=== PATIENT | male | born 1950 | race Caucasian/White ===

== ENCOUNTER → 2018-03-01 | Outpatient (CLI) | payer OTHER, MEDICARE | END | disposition home or self-care (01) | LOC: CFH 10:01 | PROVIDERS: ATTEND Urology | DX: Z02.9 Encounter for administrative examinations, unspecified (principal) ==

== ENCOUNTER → 2018-07-26 | Outpatient (CLI) | payer OTHER, MEDICARE | END | disposition home or self-care (01) | LOC: CFH 11:19 | PROVIDERS: ATTEND Physician Assistant | DX: Z13.820 Encounter for screening for osteoporosis (principal); M85.89 Other specified disorders of bone density and structure, multiple sites; C79.51 Secondary malignant neoplasm of bone | CPT/HCPCS: 77080 ==

== ENCOUNTER 2018-08-05 19:30 | Inpatient (IN) | payer OTHER, MEDICARE ==
[~2018-08-05] VITALS: Ht 175.3 cm; Wt 92.1 kg
[2018-08-05 20:07] LABS: BASOPHILS # (AUTO) 0.02 x10^3/uL (0-0.1); BASOPHILS % (AUTO) 0 % (0-1); EOSINOPHILS # (AUTO) 0.12 x10^3/uL (0-0.4); EOSINOPHILS % (AUTO) 2 % (1-7); LYMPHOCYTES # (AUTO) 1.11 x10^3/uL (1-3.4); LYMPHOCYTES % (AUTO) 23 % (22-44); MD NO; MEAN CORPUSCULAR HEMOGLOBIN 32.5 pg (27.5-34.5); MEAN CORPUSCULAR HGB CONC 34.4 g/dL (33.2-36.2); MEAN CORPUSCULAR VOLUME 94.4 fL (81-97); MEAN PLATELET VOLUME 9.5 fL (7.4-10.4); MONOCYTES # (AUTO) 0.38 x10^3/uL (0.2-0.8); MONOCYTES % (AUTO) 8 % (2-9); NEUTROPHILS # (AUTO) 3.14 x10^3/uL (1.8-6.8); NEUTROPHILS % (AUTO) 66 % (42-75); PLATELET COUNT 206 x10^3/uL (130-400); RED BLOOD COUNT 4.88 x10^6/uL (4.38-5.82); RED CELL DISTRIBUTION WIDTH 12.7 % (9.4-14.8)
[2018-08-05 20:14] LABS: ALBUMIN 3.8 g/dL (3.4-5.0); ANION GAP 8 mmol/L (5-15); CALCIUM 9.8 mg/dL (8.5-10.1); CHLORIDE 107 mmol/L (98-107)
[2018-08-05 20:18] LABS: ALANINE AMINOTRANSFERASE 706 U/L (12-78); ALKALINE PHOSPHATASE 118 U/L (45-117); BILIRUBIN,TOTAL 6.3 mg/dL (0.2-1.0); CREATININE 0.97 mg/dL (0.7-1.3); TOTAL PROTEIN 7.1 g/dL (6.4-8.2)
[2018-08-05 20:55] LABS: CULTURE INDICATED? YES; MICROSCOPIC INDICATED
[2018-08-05] MEDS ORDERED: ENZA40CA PO (20:55)
--- NOTE | 2018-08-05 20:59 | NUR ---
RECENT DX OF ULCER FROM ED. "I MESSED MYSELF UP AGAIN BY EATING BAD." STATES HEMATURIA TODAY. DENIES ABD/FLANK PAIN. DENIES FEVERS. per triage note vss stable
--- NOTE | 2018-08-05 22:45 | NUR ---
PT BACK FROM RADIOLOGY, NO DISTRESS NOTED, DENIES PAIN AT THIS TIME, RESTING QUIETLY WATCHING TV, AT BS, CALL LIGHT IN REACH
--- NOTE | 2018-08-05 23:16 | NUR ---
PT UP T BATHROOM WITH STEADY GAIT
--- NOTE | 2018-08-06 00:28 | NUR ---
REPORT GIVEN TO LORE PATTON
[2018-08-06] MEDS ORDERED: ONDANSETRON 2MG/ML, 2ML IVPush PRN ×2 (00:30→01:00)
[2018-08-06] MEDS ORDERED: MORPHINE SULFATE 4 MG/ML, 1ML IVPush PRN (00:30)
[2018-08-06] MEDS ORDERED: SODIUM CHLORIDE 0.9% 1,000ML IVBOLUS ONE (00:30)
[2018-08-06] MEDS ORDERED: LIDODERM 5% PATCH TD PRN (01:00)
[2018-08-06] MEDS ORDERED: BISACODYL 10 MG SUPP PR PRN (01:00)
[2018-08-06] MEDS ORDERED: morphine SULFATE 10 MG/ML, 1ML IVPush PRN (01:00)
[2018-08-06] MEDS ORDERED: LABETALOL 5MG/ML, 20ML IVPush PRN (01:00)
[2018-08-06 02:22] VITALS: BP 142/89
[2018-08-06] MEDS: SODIUM CHLORIDE 0.9% 1,000 ML IV SCH ×3 (02:26→15:42)
[2018-08-06] MEDS ORDERED: OMNIPAQUE 350 MG/ML, 100ML BOTTLE ONE (05:11)
[2018-08-06 08:08] VITALS: BP 144/81
[2018-08-06] MEDS: FAMOTIDINE 20 MG/2 ML IVPush SCH ×2 (08:32→20:27)
[2018-08-06 12:49] VITALS: BP 133/77
[2018-08-06 18:46] VITALS: BP 158/83
[2018-08-07 00:10] VITALS: BP 157/85
[2018-08-07] MEDS: SODIUM CHLORIDE 0.9% 1,000 ML IV SCH ×3 (00:29→22:25)
[2018-08-07 06:01] LABS: HCT (SEDRATE) 40.2 % (39.2-51.8); MEAN CORPUSCULAR HEMOGLOBIN 31.8 pg (27.5-34.5); MEAN CORPUSCULAR HGB CONC 33.9 g/dL (33.2-36.2); MEAN CORPUSCULAR VOLUME 93.8 fL (81-97); MEAN PLATELET VOLUME 9.8 fL (7.4-10.4); PLATELET COUNT 181 x10^3/uL (130-400); RED BLOOD COUNT 4.29 x10^6/uL (4.38-5.82); RED CELL DISTRIBUTION WIDTH 12.7 % (9.4-14.8)
[2018-08-07 06:05] LABS: CHLORIDE 112 mmol/L (98-107)
[2018-08-07 06:06] LABS: ANION GAP 7 mmol/L (5-15); C-REACTIVE PROTEIN, QUANT 0.92 mg/dL (0.02-0.49); CALCIUM 8.5 mg/dL (8.5-10.1); CREATININE 0.69 mg/dL (0.7-1.3)
[2018-08-07 06:25] LABS: BASOPHILS # (AUTO) 0.03 x10^3/uL (0-0.1); BASOPHILS % (AUTO) 1 % (0-1); EOSINOPHILS # (AUTO) 0.33 x10^3/uL (0-0.4); EOSINOPHILS % (AUTO) 9 % (1-7); LYMPHOCYTES # (AUTO) 1.02 x10^3/uL (1-3.4); LYMPHOCYTES % (AUTO) 28 % (22-44); MD SCAN; MONOCYTES # (AUTO) 0.43 x10^3/uL (0.2-0.8); MONOCYTES % (AUTO) 12 % (2-9); NEUTROPHILS # (AUTO) 1.83 x10^3/uL (1.8-6.8); NEUTROPHILS % (AUTO) 50 % (42-75)
[2018-08-07 07:34] VITALS: BP 152/87
[2018-08-07] MEDS: FAMOTIDINE 20 MG/2 ML IVPush SCH ×2 (10:41→20:32)
[2018-08-07 12:21] VITALS: BP 175/85
[2018-08-07] MEDS ORDERED: FENTANYL PF 100 MCG/2ML ONE (12:40)
[2018-08-07] MEDS ORDERED: ONDANSETRON 2MG/ML, 2ML ONE (13:25)
[2018-08-07] MEDS ORDERED: MEPERIDINE/PF 25MG/0.5ML IVPush PRN (14:00)
[2018-08-07] MEDS ORDERED: MORPHINE SULFATE 4 MG/ML, 1ML IVPush PRN (14:00)
[2018-08-07] MEDS ORDERED: FENTANYL PF 100 MCG/2ML IV PRN (14:00)
[2018-08-07] MEDS ORDERED: PROMETHAZINE 12.5 MG SUPP PR PRN (14:00)
[2018-08-07] MEDS ORDERED: hydrALAzine 20 MG/ML, 1ML IV PRN (14:00)
[2018-08-07] MEDS ORDERED: HALOPERIDOL 5 MG/ML IV PRN (14:00)
[2018-08-07] MEDS ORDERED: MIDAZOLAM 1 MG/ML, 2ML IV PRN (14:00)
[2018-08-07] MEDS ORDERED: ALBUTEROL SULFATE 2.5 MG/3 ML NPPB PRN (14:00)
[2018-08-07] MEDS ORDERED: LABETALOL 5MG/ML, 20ML IV PRN (14:00)
[2018-08-07] MEDS ORDERED: EPHEDRINE 50 MG/ML, 1ML IVPush PRN (14:00)
[2018-08-07] MEDS ORDERED: HYDROmorphone 2 MG/ML, 1ML IVPush PRN (14:00)
[2018-08-07] MEDS ORDERED: PROMETHAZINE 25 MG/ML, 1ML IV PRN (14:00)
[2018-08-07] MEDS ORDERED: OXYcodone 5 MG/5 ML ORAL.SOL UDC PO PRN (14:00)
[2018-08-07] MEDS ORDERED: ONDANSETRON 2MG/ML, 2ML IV PRN (14:00)
[2018-08-07] MEDS ORDERED: ONDANSETRON ODT 8 MG PO PRN (14:00)
[2018-08-07] MEDS ORDERED: DIAZEPAM 5 MG/ML, 2ML IVPush PRN (14:00)
[2018-08-07] MEDS ORDERED: ROCURONIUM 10MG/ML,5ML ONE (15:49)
[2018-08-07] MEDS ORDERED: PROPOFOL 10 MG/ML, 20ML ONE (15:49)
[2018-08-07] MEDS ORDERED: DEXAMETHASONE 4 MG/ML, 1ML ONE (15:49)
[2018-08-07] MEDS ORDERED: SUCCINYLCHOLINE 20 MG/ML, 10ML ONE (15:49)
[2018-08-07 20:00] VITALS: BP 126/75
[2018-08-08 01:13] VITALS: BP 145/75
[2018-08-08] MEDS: SODIUM CHLORIDE 0.9% 1,000 ML IV SCH ×3 (05:48→19:50)
[2018-08-08 06:09] LABS: ANION GAP 6 mmol/L (5-15); CALCIUM 8.5 mg/dL (8.5-10.1); CHLORIDE 112 mmol/L (98-107)
[2018-08-08 06:10] LABS: CREATININE 0.69 mg/dL (0.7-1.3)
[2018-08-08 06:12] LABS: BASOPHILS # (AUTO) 0.03 x10^3/uL (0-0.1); BASOPHILS % (AUTO) 1 % (0-1); EOSINOPHILS % (AUTO) 4 % (1-7); LYMPHOCYTES % (AUTO) 21 % (22-44); MD NO; MEAN CORPUSCULAR HEMOGLOBIN 31.7 pg (27.5-34.5); MEAN CORPUSCULAR HGB CONC 33.9 g/dL (33.2-36.2); MEAN CORPUSCULAR VOLUME 93.7 fL (81-97); MEAN PLATELET VOLUME 9.8 fL (7.4-10.4); MONOCYTES # (AUTO) 0.54 x10^3/uL (0.2-0.8); MONOCYTES % (AUTO) 10 % (2-9); NEUTROPHILS # (AUTO) 3.69 x10^3/uL (1.8-6.8); NEUTROPHILS % (AUTO) 65 % (42-75); PLATELET COUNT 193 x10^3/uL (130-400); RED BLOOD COUNT 4.23 x10^6/uL (4.38-5.82); RED CELL DISTRIBUTION WIDTH 12.7 % (9.4-14.8)
[2018-08-08 07:13] VITALS: BP 153/91
[2018-08-08] MEDS: FAMOTIDINE 20 MG/2 ML IVPush SCH ×2 (09:34→21:51)
[2018-08-08 14:30] VITALS: BP 163/75
[2018-08-08] MEDS ORDERED: BUPIVACAINE/PF-EPI 0.5% 1:200K ONE (15:12)
[2018-08-08] MEDS ORDERED: MIDAZOLAM 1 MG/ML, 2ML ONE (15:50)
[2018-08-08] MEDS ORDERED: PROPOFOL 50 ML ONE (15:50)
[2018-08-08] MEDS ORDERED: FENTANYL PF 250 MCG/5ML ONE (15:50)
[2018-08-08] MEDS ORDERED: SUCCINYLCHOLINE 20 MG/ML, 10ML ONE (16:10)
[2018-08-08] MEDS ORDERED: ROCURONIUM 10 MG/ML,10ML ONE (16:10)
[2018-08-08] MEDS ORDERED: ONDANSETRON 2MG/ML, 2ML ONE (16:10)
[2018-08-08] MEDS ORDERED: DEXAMETHASONE 4 MG/ML, 1ML ONE (16:10)
[2018-08-08] MEDS ORDERED: PROMETHAZINE 25 MG/ML, 1ML IM PRN (17:00)
[2018-08-08] MEDS ORDERED: MIDAZOLAM 1 MG/ML, 2ML IV PRN (17:00)
[2018-08-08] MEDS ORDERED: OXYcodone 5 MG/5 ML ORAL.SOL UDC PO PRN (17:00)
[2018-08-08] MEDS ORDERED: EPHEDRINE 50 MG/ML, 1ML IVPush PRN (17:00)
[2018-08-08] MEDS ORDERED: EPHEDRINE 50 MG/ML, 1ML IM PRN (17:00)
[2018-08-08] MEDS ORDERED: DIAZEPAM 5 MG/ML, 2ML IVPush PRN (17:00)
[2018-08-08] MEDS ORDERED: PROMETHAZINE 25 MG SUPP PR PRN (17:00)
[2018-08-08] MEDS ORDERED: PROMETHAZINE 25 MG/ML, 1ML IV PRN (17:00)
[2018-08-08] MEDS ORDERED: ONDANSETRON ODT 8 MG PO PRN (17:00)
[2018-08-08] MEDS ORDERED: FENTANYL PF 100 MCG/2ML IV PRN (17:00)
[2018-08-08] MEDS ORDERED: hydrALAzine 20 MG/ML, 1ML IV PRN (17:00)
[2018-08-08] MEDS ORDERED: ONDANSETRON 2MG/ML, 2ML IV PRN ×2 (17:00→18:30)
[2018-08-08] MEDS ORDERED: DIPHENHYDRAMINE 50 MG/ML, 1ML IVPush PRN (17:00)
[2018-08-08] MEDS ORDERED: PROMETHAZINE 12.5 MG SUPP PR PRN (17:00)
[2018-08-08] MEDS ORDERED: MORPHINE SULFATE 4 MG/ML, 1ML IVPush PRN (17:00)
[2018-08-08] MEDS ORDERED: METOPROLOL 1 MG/ML, 5ML IV PRN (17:00)
[2018-08-08] MEDS ORDERED: OXYcodone 5 MG/5 ML ORAL.SOL UDC ONE (17:40)
[2018-08-08] MEDS ORDERED: morphine SULFATE 10 MG/ML, 1ML IV PRN (18:30)
[2018-08-08] MEDS ORDERED: HYDROcodone/APAP 5/325 TABLET PO PRN (18:30)
[2018-08-08] MEDS ORDERED: HYDROmorphone 2 MG/ML, 1ML IVPush PRN (18:30)
[2018-08-08 19:27] VITALS: BP 148/81
[2018-08-08] MEDS: CEFOTETAN PMX 1GM/50ML 50 ML IVPB SCH (19:50)
[2018-08-08] MEDS: POTASSIUM CHLORIDE 20 MEQ in D5%-LACTATED RINGERS 1,000 ML IV SCH (19:50)
[2018-08-09 00:53] VITALS: BP 137/86
[2018-08-09] MEDS: OXYcodone/APAP 5/325MG TABLET PO PRN ×4 (02:37→14:14)
[2018-08-09] MEDS: POTASSIUM CHLORIDE 20 MEQ in D5%-LACTATED RINGERS 1,000 ML IV SCH ×2 (03:30→10:25)
[2018-08-09] MEDS: SODIUM CHLORIDE 0.9% 1,000 ML IV SCH (04:00)
[2018-08-09 04:52] VITALS: BP 120/72
[2018-08-09 05:42] LABS: BASOPHILS # (AUTO) 0.02 x10^3/uL (0-0.1); BASOPHILS % (AUTO) 0 % (0-1); EOSINOPHILS # (AUTO) 0.08 x10^3/uL (0-0.4); EOSINOPHILS % (AUTO) 1 % (1-7); LYMPHOCYTES # (AUTO) 0.93 x10^3/uL (1-3.4); LYMPHOCYTES % (AUTO) 15 % (22-44); MD NO; MEAN CORPUSCULAR HEMOGLOBIN 32.2 pg (27.5-34.5); MEAN CORPUSCULAR HGB CONC 34.1 g/dL (33.2-36.2); MEAN CORPUSCULAR VOLUME 94.4 fL (81-97); MEAN PLATELET VOLUME 9.8 fL (7.4-10.4); MONOCYTES % (AUTO) 10 % (2-9); NEUTROPHILS # (AUTO) 4.64 x10^3/uL (1.8-6.8); NEUTROPHILS % (AUTO) 74 % (42-75); PLATELET COUNT 174 x10^3/uL (130-400); RED BLOOD COUNT 4.13 x10^6/uL (4.38-5.82); RED CELL DISTRIBUTION WIDTH 12.6 % (9.4-14.8)
[2018-08-09 05:51] LABS: CHLORIDE 109 mmol/L (98-107)
[2018-08-09 06:00] LABS: ANION GAP 7 mmol/L (5-15); CALCIUM 8.6 mg/dL (8.5-10.1); CREATININE 0.68 mg/dL (0.7-1.3)
[2018-08-09] MEDS ORDERED: ENOXAPARIN 40 MG/0.4 ML SQ SCH (06:00)
[2018-08-09] MEDS: CEFOTETAN PMX 1GM/50ML 50 ML IVPB SCH (06:14)
[2018-08-09 06:51] VITALS: BP 128/76
[2018-08-09] MEDS ORDERED: FAMOTIDINE 20 MG TABLET PO SCH (09:00)
[2018-08-09 14:08] VITALS: BP 137/81
[2018-08-09] MEDS ORDERED: HYDR-3237 PO (15:40)
[2018-08-09 16:09] VITALS: BP 128/71
== END 2018-08-09 17:00 | disposition home or self-care (01) | DRG 417 ==
LOC: ED 23:10 → EDIP 08-06 00:13 → 4NOR 08-06 01:09 → DCLOUNGE 08-09 16:31
PROVIDERS: ADMIT Internal Medicine; ATTEND Internal Medicine
PROC: 0FD98ZX Extraction of Common Bile Duct, Via Natural or Artificial Opening Endoscopic, Diagnostic (ICD-10-PCS; 2018-08-07)
PROC: BF131ZZ Fluoroscopy of Gallbladder and Bile Ducts using Low Osmolar Contrast (ICD-10-PCS; 2018-08-07)
PROC: 0FT44ZZ Resection of Gallbladder, Percutaneous Endoscopic Approach (ICD-10-PCS; principal; 2018-08-08 16:30)
DX: K80.62 Calculus of gallbladder and bile duct with acute cholecystitis without obstruction (principal); K85.10 Biliary acute pancreatitis without necrosis or infection; C61 Malignant neoplasm of prostate; K27.9 Peptic ulcer, site unspecified, unspecified as acute or chronic, without hemorrhage or perforation; K57.30 Diverticulosis of large intestine without perforation or abscess without bleeding; K76.0 Fatty (change of) liver, not elsewhere classified; N20.0 Calculus of kidney; E80.6 Other disorders of bilirubin metabolism; E66.01 Morbid (severe) obesity due to excess calories; K83.5 Biliary cyst; K21.9 Gastro-esophageal reflux disease without esophagitis; I10 Essential (primary) hypertension; Z83.3 Family history of diabetes mellitus; Z68.30 Body mass index [BMI] 30.0-30.9, adult
CPT/HCPCS: 36415; 74328; 99291; J3490; J7121; 74177; 74181; 76700; 80048; 80053; 81001; 83690; 84478; 85025; 85651; 86140; 87086; 88304; 93005; C1729; G0378; J1100; J1650; J2250; J2405; J2704; J3010; J3480; Q9967; C1760; C1769; J0330; J7030

== ENCOUNTER 2019-05-19 06:48 | Emergency (ER) | payer OTHER, MEDICARE ==
[~2019-05-19] VITALS: Ht 175.3 cm; Wt 95.0 kg
[~2019-05-19 06:48] MED LIST: ENZA40CA PO; HYDR-3237 PO
--- NOTE | 2019-05-19 07:11 | NUR ---
69 Y/O MALE PRESENTS TO ED WITH C/O HEART FLUTTER. PER PT " A FEW DAYS AGO I FELT MY HEART FLUTTER SOME, IT DIDN'T HAPPEN A LOT. BUT IT'S BEEN ONGOING AND TODAY WHILE I WAS DRIVING MY BUS I FELT IT AGAIN. I DIDN'T HAVE ANY CHEST PAIN. 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 NADN. NO CO N/V/D, TRUAMA, SYNCOPE, CP
[2019-05-19 07:41] LABS: BASOPHILS # (AUTO) 0.03 x10^3/uL (0-0.1); BASOPHILS % (AUTO) 1 % (0-1); EOSINOPHILS # (AUTO) 0.21 x10^3/uL (0-0.4); EOSINOPHILS % (AUTO) 4 % (1-7); LYMPHOCYTES # (AUTO) 1.17 x10^3/uL (1-3.4); LYMPHOCYTES % (AUTO) 21 % (22-44); MD NO; MEAN CORPUSCULAR HEMOGLOBIN 32.2 pg (27.5-34.5); MEAN CORPUSCULAR HGB CONC 33.8 g/dL (33.2-36.2); MEAN CORPUSCULAR VOLUME 95.2 fL (81-97); MEAN PLATELET VOLUME 9.6 fL (7.4-10.4); MONOCYTES # (AUTO) 0.43 x10^3/uL (0.2-0.8); MONOCYTES % (AUTO) 8 % (2-9); NEUTROPHILS # (AUTO) 3.79 x10^3/uL (1.8-6.8); NEUTROPHILS % (AUTO) 67 % (42-75); PLATELET COUNT 201 x10^3/uL (130-400); RED BLOOD COUNT 4.62 x10^6/uL (4.38-5.82); RED CELL DISTRIBUTION WIDTH 13.1 % (9.4-14.8)
[2019-05-19 07:48] LABS: ALANINE AMINOTRANSFERASE 30 U/L (12-78); ALBUMIN 3.4 g/dL (3.4-5.0); ANION GAP 8 mmol/L (5-15); CALCIUM 8.6 mg/dL (8.5-10.1); CHLORIDE 111 mmol/L (98-107); CREATININE 0.63 mg/dL (0.7-1.3)
[2019-05-19 07:52] LABS: ALKALINE PHOSPHATASE 79 U/L (45-117); BILIRUBIN,TOTAL 0.5 mg/dL (0.2-1.0); TOTAL PROTEIN 6.7 g/dL (6.4-8.2); TROPONIN I < 0.015 ng/mL (0.000-0.045)
[2019-05-19 08:34] VITALS: BP 138/73
--- NOTE | 2019-05-19 08:34 | NUR ---
PT AMBULATORY WITH STEADY GAIT TO BATHROOM. NADN. NO C/O PAIN. VSS. NO OTHER NEEDS REQUESTED AT THIS TIME.
--- NOTE | 2019-05-19 09:20 | NUR ---
Patient/Caregiver given discharge instructions and they have confirmed that they understand the instructions. Patient ambulatory with steady gait. PT LEFT WITH ALL PERSONAL BELONGINGS.
== END 2019-05-19 09:22 | disposition home or self-care (01) ==
LOC: ED 09:00
DX: R00.2 Palpitations (principal); C61 Malignant neoplasm of prostate
CPT/HCPCS: 36415; 71045; 80053; 83690; 84484; 85025; 93005; 99284

== ENCOUNTER → 2019-12-10 | Outpatient (CLI) | payer OTHER, MEDICARE ==
[~2019-12-10] MED LIST changes: +OMNIPAQUE 350 MG/ML, 100ML BOTTLE ONE
== END | disposition home or self-care (01) ==
LOC: CFH 09:07
PROVIDERS: ATTEND Urology
DX: C61 Malignant neoplasm of prostate (principal); M51.36 Other intervertebral disc degeneration, lumbar region; K76.0 Fatty (change of) liver, not elsewhere classified; M85.80 Other specified disorders of bone density and structure, unspecified site; N28.1 Cyst of kidney, acquired
CPT/HCPCS: 74177; 82565; Q9967

== ENCOUNTER → 2020-01-27 | Outpatient (CLI) | payer MEDICARE, OTHER ==
[~2020-01-27] MED LIST changes: -OMNIPAQUE 350 MG/ML, 100ML BOTTLE ONE; +REGADENOSON 0.4 MG/5 ML SYRINGE ONE
== END | disposition home or self-care (01) ==
LOC: RAD 07:56
PROVIDERS: ATTEND Internal Medicine Cardiovascular Disease
DX: I35.1 Nonrheumatic aortic (valve) insufficiency (principal); R07.9 Chest pain, unspecified; R94.31 Abnormal electrocardiogram [ECG] [EKG]
CPT/HCPCS: 78452; 93017; 93306; A9502; J2785

== ENCOUNTER 2020-02-08 08:17 | Emergency (ER) | payer OTHER, MEDICARE ==
[~2020-02-08] VITALS: Ht 175.3 cm; Wt 94.3 kg
[~2020-02-08 08:17] MED LIST changes: -REGADENOSON 0.4 MG/5 ML SYRINGE ONE
[2020-02-08 08:22] VITALS: BP 165/98
[2020-02-08] MEDS ORDERED: KETOROLAC 30 MG/1 ML IM ONE (09:00)
[2020-02-08] MEDS ORDERED: METHOCARBAMOL 750 MG TABLET PO ONE (09:00)
[2020-02-08 09:09] LABS: BASOPHILS # (AUTO) 0.02 x10^3/uL (0-0.1); BASOPHILS % (AUTO) 1 % (0-1); EOSINOPHILS # (AUTO) 0.11 x10^3/uL (0-0.4); EOSINOPHILS % (AUTO) 3 % (1-7); LYMPHOCYTES # (AUTO) 1.21 x10^3/uL (1-3.4); LYMPHOCYTES % (AUTO) 27 % (22-44); MD NO; MEAN CORPUSCULAR HGB CONC 33.2 g/dL (33.2-36.2); MEAN PLATELET VOLUME 9.6 fL (7.4-10.4); MONOCYTES # (AUTO) 0.33 x10^3/uL (0.2-0.8); MONOCYTES % (AUTO) 7 % (2-9); NEUTROPHILS # (AUTO) 2.81 x10^3/uL (1.8-6.8); NEUTROPHILS % (AUTO) 63 % (42-75); PLATELET COUNT 194 x10^3/uL (130-400); RED BLOOD COUNT 4.58 x10^6/uL (4.38-5.82); RED CELL DISTRIBUTION WIDTH 12.4 % (9.4-14.8)
[2020-02-08] MEDS ORDERED: KETOROLAC 30 MG/1 ML ONE (09:17)
[2020-02-08] MEDS ORDERED: METHOCARBAMOL 750 MG TABLET ONE (09:17)
[2020-02-08 09:18] LABS: ALBUMIN 3.7 g/dL (3.4-5.0); ANION GAP 5 mmol/L (5-15); CALCIUM 8.9 mg/dL (8.5-10.1); CHLORIDE 113 mmol/L (98-107)
[2020-02-08 09:19] LABS: CREATININE 0.74 mg/dL (0.7-1.3)
[2020-02-08 09:34] LABS: MICROSCOPIC NOT IND
== END 2020-02-08 10:15 | disposition home or self-care (01) ==
LOC: ED 09:02
DX: S39.012A Strain of muscle, fascia and tendon of lower back, initial encounter (principal); E03.9 Hypothyroidism, unspecified; X58.XXXA Exposure to other specified factors, initial encounter; Y93.89 Activity, other specified; Y92.89 Other specified places as the place of occurrence of the external cause; Y99.8 Other external cause status
CPT/HCPCS: 36415; 72110; 80048; 81003; 82040; 85025; 96372; 99284; J1885

== ENCOUNTER 2020-03-19 10:06 | Observation (INO) | payer OTHER, MEDICARE ==
[~2020-03-19] VITALS: Ht 175.3 cm; Wt 96.2 kg
[2020-03-19 11:38] VITALS: BP 160/96
[2020-03-19] MEDS ORDERED: LEUP3.75 IM (11:49)
[2020-03-19] MEDS ORDERED: LEVO50TA5 PO (11:49)
[2020-03-19] MEDS ORDERED: CHOL10003 PO (11:49)
[2020-03-19] MEDS ORDERED: METO25TA2 PO (11:49)
[2020-03-19] MEDS ORDERED: CYAN-27 PO (11:49)
[2020-03-19 12:01] LABS: BASOPHILS % (AUTO) 1 % (0-1); EOSINOPHILS % (AUTO) 2 % (1-7); LYMPHOCYTES % (AUTO) 31 % (22-44); MEAN CORPUSCULAR HEMOGLOBIN 32.1 pg (27.5-34.5); MEAN CORPUSCULAR HGB CONC 34.2 g/dL (33.2-36.2); MEAN PLATELET VOLUME 9.8 fL (7.4-10.4); MONOCYTES % (AUTO) 9 % (2-9); NEUTROPHILS % (AUTO) 57 % (42-75); PLATELET COUNT 201 x10^3/uL (130-400); RED BLOOD COUNT 4.79 x10^6/uL (4.38-5.82); RED CELL DISTRIBUTION WIDTH 12.6 % (9.4-14.8)
[2020-03-19 12:02] LABS: MD NO
[2020-03-19 12:03] LABS: ANION GAP 5 mmol/L (5-15); CALCIUM 8.7 mg/dL (8.5-10.1); CHLORIDE 112 mmol/L (98-107)
[2020-03-19] MEDS ORDERED: HEPARIN 1,000 UNITS/ML, 10ML ONE ×2 (13:16→13:24)
[2020-03-19] MEDS ORDERED: MIDAZOLAM 1 MG/ML, 5ML ONE ×2 (13:16→13:23)
[2020-03-19] MEDS ORDERED: VERAPAMIL 2.5 MG/ML, 2ML ONE ×2 (13:16→13:24)
[2020-03-19] MEDS ORDERED: LIDOCAINE-MPF 1%, 5ML ONE (13:16)
[2020-03-19] MEDS ORDERED: TICAGRELOR 90 MG TABLET ONE ×2 (13:16→13:24)
[2020-03-19] MEDS ORDERED: FENTANYL PF 100 MCG/2ML ONE ×2 (13:16→13:23)
[2020-03-19] MEDS ORDERED: BIVALIRUDIN 250 MG ONE ×2 (13:16→13:24)
[2020-03-19] MEDS ORDERED: NITROGLYCERIN 30 MCG/ML, 20ML VIAL ONE ×2 (13:17→13:24)
[2020-03-19] MEDS ORDERED: LIDOCAINE 2%, 20ML ONE (13:24)
[2020-03-19] MEDS ORDERED: ACETAMINOPHEN 325 MG TABLET ONE (16:18)
[2020-03-19] MEDS: ACETAMINOPHEN 325 MG TABLET PO PRN ×2 (16:20→22:00)
[2020-03-19] MEDS ORDERED: FAMOTIDINE 20 MG TABLET PO PRN (16:30)
[2020-03-19] MEDS: SODIUM CHLORIDE 0.9% 1,000 ML IV SCH ×4 (18:12→22:08)
[2020-03-19 18:54] VITALS: BP 216/106
[2020-03-19 19:08] VITALS: BP 177/93
[2020-03-19] MEDS ORDERED: ATORVASTATIN 40 MG TABLET PO SCH (21:00)
[2020-03-19] MEDS: TICAGRELOR 90 MG TABLET PO SCH (22:00)
[2020-03-20 01:08] VITALS: BP 125/76
[2020-03-20 04:41] LABS: ANION GAP 5 mmol/L (5-15); CALCIUM 8.6 mg/dL (8.5-10.1); CHLORIDE 110 mmol/L (98-107); CREATININE 0.63 mg/dL (0.7-1.3)
[2020-03-20 08:07] VITALS: BP 124/75
[2020-03-20] MEDS ORDERED: ATOR40TA78 PO (08:50)
[2020-03-20] MEDS ORDERED: ACET325T26 PO (08:50)
[2020-03-20] MEDS ORDERED: ASPI81TA45 PO (08:50)
[2020-03-20] MEDS ORDERED: TICA90TA PO (08:50)
[2020-03-20] MEDS ORDERED: ENZALUTAMIDE 40 MG PO SCH (09:00)
[2020-03-20] MEDS ORDERED: ASPIRIN 81 MG TABLET EC PO SCH (09:00)
[2020-03-20] MEDS ORDERED: CYANOCOBALAMIN 1,000 MCG TABLET PO SCH (09:00)
[2020-03-20] MEDS ORDERED: LEVOTHYROXINE 50 MCG TABLET PO SCH (09:00)
[2020-03-20] MEDS ORDERED: METOPROLOL SUCCINATE 25 MG TAB.ER.24H PO SCH (09:00)
[2020-03-20] MEDS ORDERED: POTASSIUM CHLORIDE 20 MEQ TAB.ER.PRT PO ONE (09:30)
[2020-03-20] MEDS: TICAGRELOR 90 MG TABLET PO SCH (09:53)
[2020-03-24] MEDS ORDERED: CHOLECALCIFEROL 1,000 UNIT TABLET PO SCH (09:00)
== END 2020-03-20 11:07 | disposition home or self-care (01) ==
LOC: CACL 10:06 → ORIP 14:49 → 5SO 17:30 → DCLOUNGE 03-20 10:42
PROVIDERS: ADMIT Internal Medicine Cardiovascular Disease; ATTEND Internal Medicine Cardiovascular Disease
DX: R07.89 Other chest pain (principal); R94.31 Abnormal electrocardiogram [ECG] [EKG]; R00.0 Tachycardia, unspecified; I10 Essential (primary) hypertension; M19.90 Unspecified osteoarthritis, unspecified site; C61 Malignant neoplasm of prostate; E55.9 Vitamin D deficiency, unspecified; Z79.899 Other long term (current) drug therapy
CPT/HCPCS: 36415; 80048; 85014; 85018; 85025; 93005; 93458; 93571; 96360; 96361; 99156; 99157; C1725; C1769; C1874; C1887; C1894; C9600; G0378; J0583; J1644; J2250; J3010; J3490; J7030; Q9967

== ENCOUNTER 2020-04-03 13:14 | Outpatient (CLI) | payer OTHER, MEDICARE ==
[~2020-04-03 13:14] MED LIST changes: +ACET325T26 PO; +ASPI81TA45 PO; +ATOR40TA78 PO; +CHOL10003 PO; +CYAN-27 PO; +LEUP3.75 IM; +LEVO50TA5 PO; +METO25TA2 PO; +TICA90TA PO
[2020-04-03 14:08] LABS: ALBUMIN 3.6 g/dL (3.4-5.0); CHLORIDE 113 mmol/L (98-107)
[2020-04-03 14:18] LABS: ALANINE AMINOTRANSFERASE 26 U/L (12-78); ALKALINE PHOSPHATASE 72 U/L (45-117); ANION GAP 5 mmol/L (5-15); BILIRUBIN,TOTAL 0.6 mg/dL (0.2-1.0); CALCIUM 8.8 mg/dL (8.5-10.1); CREATININE 0.72 mg/dL (0.7-1.3); TOTAL PROTEIN 6.8 g/dL (6.4-8.2)
== END 2020-04-03 23:59 | disposition home or self-care (01) ==
LOC: LAB 13:14
PROVIDERS: ATTEND Urology
DX: C61 Malignant neoplasm of prostate (principal)
CPT/HCPCS: 36415; 80053; 84153; 84403; G0103

== ENCOUNTER → 2020-07-27 | Outpatient (CLI) | payer MEDICARE | END | disposition home or self-care (01) | LOC: CFH 09:37 | PROVIDERS: ATTEND Urology | DX: M85.88 Other specified disorders of bone density and structure, other site (principal) | CPT/HCPCS: 77080 ==

== ENCOUNTER → 2020-09-27 | Outpatient (CLI) | payer MEDICARE | END | disposition home or self-care (01) | LOC: RAD 09:05 | PROVIDERS: ATTEND Physician Assistant | DX: C61 Malignant neoplasm of prostate (principal) | CPT/HCPCS: 78306; A9503 ==

== ENCOUNTER → 2020-12-10 | Outpatient (CLI) | payer MEDICARE | END | disposition home or self-care (01) | LOC: CVU 07:57 | PROVIDERS: ATTEND Internal Medicine Cardiovascular Disease | DX: I08.3 Combined rheumatic disorders of mitral, aortic and tricuspid valves (principal); Z85.46 Personal history of malignant neoplasm of prostate | CPT/HCPCS: 93306; 93356 ==